=== PATIENT | male | born 1990 | race Caucasian/White ===

== ENCOUNTER 2020-03-24 13:11 | Emergency (ER) | payer SELFPAY ==
[~2020-03-24] VITALS: Ht 167.6 cm; Wt 109.0 kg
[2020-03-24] MEDS ORDERED: IBUPROFEN 600MG TABLET PO ONE (14:00)
[2020-03-24] MEDS ORDERED: MAGNESIUM/ALUMINUM HYDROXIDE/SIMETHICONE 30ML UDC PO ONE (14:00)
[2020-03-24 15:38] VITALS: BP 102/78
== END 2020-03-24 15:15 | disposition home or self-care (01) ==
LOC: ER 13:11
DX: R07.89 Other chest pain (principal); Z20.828 Contact with and (suspected) exposure to other viral communicable diseases; R05 Cough; R51 Headache; Z98.890 Other specified postprocedural states
CPT/HCPCS: 71045; 87635; 93005; 99285; C9803-CS; U0003-CS

== ENCOUNTER 2020-04-16 21:28 | Emergency (ER) | payer SELFPAY ==
[~2020-04-16] VITALS: Ht 170.2 cm; Wt 100.0 kg
[2020-04-16] MEDS ORDERED: KETOROLAC 30MG/ML VIAL IM ONE (22:15)
[2020-04-16] MEDS ORDERED: HYDROCODONE/ACETAMINOPHEN 5/325MG TABLET PO ONE (22:30)
[2020-04-16 22:45] VITALS: BP 140/85
== END 2020-04-16 23:31 | disposition home or self-care (01) ==
LOC: ER 21:28
DX: M54.5 Low back pain (principal); Z98.890 Other specified postprocedural states
CPT/HCPCS: 72100; 96372; 99283; J1885

== ENCOUNTER 2021-07-01 10:28 | Emergency (ER) | payer SELFPAY ==
[~2021-07-01] VITALS: Ht 170.2 cm; Wt 112.0 kg
[2021-07-01 10:32] VITALS: BP 140/74
[2021-07-01] MEDS ORDERED: IBUPROFEN 600MG TABLET PO ONE (19:45)
[2021-07-01] MEDS ORDERED: TRAMADOL 50MG TABLET PO ONE (19:45)
[2021-07-01 20:26] LABS: CLARITY URINE CLEAR (CLEAR); COLOR URINE YELLOW (YELLOW); KETONES URINE NEGATIVE (NEGATIVE); LEUKOCYTE ESTERASE URINE NEGATIVE (NEGATIVE); NITRITE URINE NEGATIVE (NEGATIVE); OCCULT BLOOD URINE 1+ (NEGATIVE); PH URINE 5.5 (4.5-8.0); PROTEIN URINE NEGATIVE (NEGATIVE); SPECIFIC GRAVITY URINE 1.028 (1.005-1.030)
[2021-07-01] MEDS ORDERED: OFLO5DRO4 RIGHT EAR (21:36)
== END 2021-07-01 22:19 | disposition home or self-care (01) ==
LOC: ER 10:28
DX: H60.91 Unspecified otitis externa, right ear (principal); R31.29 Other microscopic hematuria
CPT/HCPCS: 81003; 99283

== ENCOUNTER 2022-09-16 13:05 | Emergency (ER) | payer MEDICAID ==
[~2022-09-16] VITALS: Ht 167.6 cm; Wt 98.9 kg
[~2022-09-16 13:05] MED LIST: OFLO5DRO4 RIGHT EAR
[2022-09-16] MEDS ORDERED: IBUPROFEN 400MG TABLET PO ONE (17:00)
[2022-09-16 17:48] VITALS: BP 123/80
[2022-09-16] MEDS ORDERED: IBUP-2028 MT (18:13)
== END 2022-09-16 18:58 | disposition home or self-care (01) ==
LOC: ER 13:05
DX: S83.92XA Sprain of unspecified site of left knee, initial encounter (principal); W01.0XXA Fall on same level from slipping, tripping and stumbling without subsequent striking against object, initial encounter; Y93.89 Activity, other specified; Y92.89 Other specified places as the place of occurrence of the external cause; Y99.8 Other external cause status
CPT/HCPCS: 73552; 73560; 73590; 99284